=== PATIENT | female | born 1985 ===

== ENCOUNTER 2019-04-09 12:45 | Inpatient (IN) | payer OTHER ==
[~2019-04-09] VITALS: Ht 175.3 cm; Wt 94.3 kg
[2019-04-27] MEDS ORDERED: PRENATAL TABLE1 EAC1 PO (06:05)
== END 2019-04-29 13:36 | disposition home or self-care (01) | DRG 807 ==
LOC: LDR 04-27 05:59 → OB/GYN 04-27 12:45
PROVIDERS: ADMIT Obstetrics & Gynecology Maternal & Fetal Medicine
PROC: 10E0XZZ Delivery of Products of Conception, External Approach (ICD-10-PCS; principal; 2019-04-27)
PROC: 4A1HXCZ Monitoring of Products of Conception, Cardiac Rate, External Approach (ICD-10-PCS; 2019-04-27)
DX: O80 Encounter for full-term uncomplicated delivery (principal); Z37.0 Single live birth; Z3A.40 40 weeks gestation of pregnancy; Z22.330 Carrier of Group B streptococcus

== ENCOUNTER 2019-04-21 12:16 | Outpatient (CLI) | payer OTHER | END 2019-04-21 13:49 | disposition home or self-care (01) | LOC: NST 12:16 | DX: Z34.83 Encounter for supervision of other normal pregnancy, third trimester (principal) ==